=== PATIENT | male | born 1990 | race Caucasian/White ===

== ENCOUNTER 2016-10-01 06:46 | Emergency (ER) | payer OTHER ==
[~2016-10-01] VITALS: Ht 182.9 cm; Wt 74.8 kg
[2016-10-01] MEDS ORDERED: AUGM875T27 PO (07:02)
[2016-10-01] MEDS ORDERED: TRAM1CAP15 PO (07:03)
[2016-10-01] MEDS ORDERED: TYLE325C PO (07:04)
[2016-10-01] MEDS ORDERED: FLON1SPR (08:11)
[2016-10-01] MEDS ORDERED: SUDATAB15 PO (08:11)
[2016-10-01 08:45] VITALS: BP 141/81
[2016-10-01] MEDS: NORCO, ANEXSIA 5/325MG TABLET (HYDROcodone/ACETAMINOPHEN) PO ONE (08:45)
== END 2016-10-01 08:48 | disposition home or self-care (01) ==
LOC: M ED 07:40
DX: J01.00 Acute maxillary sinusitis, unspecified (principal); G50.1 Atypical facial pain